=== PATIENT | male | born 1985 | race Caucasian/White ===

== ENCOUNTER 2017-03-04 17:09 | Emergency (ER) | payer MEDICAID, OTHER ==
[~2017-03-04] VITALS: Ht 185.4 cm; Wt 72.2 kg
[~2017-03-04 17:09] MED LIST: BACT PO; DOXY100T PO
[2017-03-04 17:22] VITALS: BP 134/75; PULSE 72; RESP 16; TEMP 98.3; O2SAT 99
[2017-03-04] MEDS ORDERED: IBUPROFEN 600 MG TAB PO ONE (18:15)
--- NOTE | 2017-03-04 18:25 | PD ---
HPI Chief Complaint: Injury Time Seen by Provider: 18:01 Travel History International Travel<30 days: No Contact w/Intl Traveler<30days: No Traveled to known affect area: No History of Present Illness HPI Patient is a 31-year-old male presents emergency department for evaluation of finger injury. Patient states he was helping some friends move when a object fell onto his hand. States his been having some pain and swelling in the left long finger PIP joint. Denies any angina injuries denies any wrist injury elbow injury neck injury head injury chest or back injury. Injury happened just prior to arrival, pain is moderate. 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 Reported Meds & Prescriptions Reported Meds & Active Scripts Active Ultram (Tramadol HCl) 50 Mg Tab 50 Mg PO Q6H PRN Review of Systems Except as stated in HPI: all other systems reviewed are Neg Physical Exam Narrative GENERAL: Well-nourished, well-developed patient. In obvious distress SKIN: Focused skin assessment warm/dry. HEAD: Normocephalic. Atraumatic. EYES: No scleral icterus. No injection or drainage. NECK: Supple, trachea midline. No JVD or lymphadenopathy. CARDIOVASCULAR: Regular rate and rhythm without murmurs, gallops, or rubs. RESPIRATORY: Breath sounds equal bilaterally. No accessory muscle use. GASTROINTESTINAL: Abdomen soft, non-tender, nondistended. MUSCULOSKELETAL: No cyanosis, or edema. Patient has some mild swelling and mild tenderness along the medial lateral aspect of the left long finger PIP joint. Full minimally tender range of motion, flexor extensor tendons are intact in all 5 digits. There is no swelling of the hand other fingers or wrists. Remainder of extremity exam is atraumatic. Pulses motor and sensory intact distally. Cap refill brisk. Data Data Last Documented VS Orders Hand, Complete ([id number]) (03/04/17 ) Ibuprofen (Motrin) (03/04/17 18:15) ^ Splint (03/04/17 18:46) MDM Medical Decision Making Medical Screen Exam Complete: Yes Emergency Medical Condition: Yes Differential Diagnosis Finger contusion finger fracture from sprain finger strain. Narrative Course Patient roomed in emergency department, x-rays show minimal bone fragments likely indicative of fracture. No displacement is seen. Patient was placed in a finger splint discussed remaining finger splint for 2 weeks and repeat x-rays have primary care physicians or the orthopedic clinic. Discussed return to ED criteria symptomatic management home. He stable for discharge. Diagnosis Primary Impression: Finger fracture, left Qualified Code: S62.643A - Closed nondisplaced fracture of proximal phalanx of left middle finger, initial encounter Patient Instructions: General Instructions, RICE Therapy (GEN) Additional Instructions: Splint for two weeks, then recommend follow up with [facility], primary care physician or orthopedics (Dr. Overton) Med/Other Pt SpecificInfo: Prescription(s) given Scripts Tramadol (Ultram)50 Mg Tab50 Mg PO Q6H PRN (PAIN) #10 TAB Ref 0 Prov:Mitul Nunez MD 03/04/17 Disposition: 01 DISCHARGE HOME Condition: Stable Mitul Nunez MD Mar 04, 2017 18:25
--- NOTE | 2017-03-04 18:36 | RADRPT ---
EXAM DATE/TIME: 03/04/2017 18:13 [facility] COMPARISON: No previous studies available for comparison. INDICATIONS : Left hand pain after boxes from moving smashed hand, Mid left 3rd digit pain and swelling. MEDICAL HISTORY : Previous left pinky fracture. SURGICAL HISTORY : None. ENCOUNTER: Initial ACUITY: 1 day PAIN SCORE: 8/10 LOCATION: Left hand. FINDINGS: There is normal bone density and joint space widths are intact. On the lateral view of the base of th e third middle phalanx a small ossific fragment is noted. A tiny chip fracture is suspected. This shantell uld be correlated for point tenderness. There is mild soft tissue swelling. CONCLUSION: Tiny ossific fracture fragments suspected base of middle phalanx volar aspect third digit. Nura Francois MD on March 04, 2017 at 18:33 Board Certified Radiologist. This report was verified electronically.
[2017-03-04] MEDS ORDERED: ULTR50TA5 PO (18:48)
== END 2017-03-04 19:07 | disposition home or self-care (01) ==
LOC: PHEFT 17:09
DX: S62.643A Nondisplaced fracture of proximal phalanx of left middle finger, initial encounter for closed fracture (principal); F17.200 Nicotine dependence, unspecified, uncomplicated; Z87.39 Personal history of other diseases of the musculoskeletal system and connective tissue; W20.8XXA Other cause of strike by thrown, projected or falling object, initial encounter
CPT/HCPCS: 73130; 99283